=== PATIENT | female | born 1995 | race Caucasian/White ===

== ENCOUNTER 2016-10-11 21:46 | Emergency (ER) | payer OTHER ==
[~2016-10-11] VITALS: Ht 165.1 cm; Wt 65.8 kg
[2016-10-11] MEDS ORDERED: NORCO, ANEXSIA 5/325MG TABLET (HYDROcodone/ACETAMINOPHEN) PO ONE (22:30)
[2016-10-11 23:01] LABS: MEAN CORPUSCULAR HEMOGLOBIN 26.6 pg (27.0-33.0); MEAN CORPUSCULAR VOLUME 83.3 fl (80.0-96.0); WHITE BLOOD COUNT 7.5 K/mm3 (4.0-10.0)
[2016-10-11 23:36] LABS: ALBUMIN 3.6 GM/DL (3.2-5.2); ALKALINE PHOSPHATASE 54 U/L (45-117); ALT/SGPT 17 U/L (12-78); AMYLASE 46 U/L (25-115); ANION GAP 8 MEQ/L (8-16); AST/SGOT 15 U/L (15-37); BILIRUBIN,DIRECT 0.1 MG/DL (0.0-0.2); BILIRUBIN,TOTAL 0.5 MG/DL (0.2-1.0); BLOOD UREA NITROGEN 13 MG/DL (7-18); CALCIUM LEVEL 8.7 MG/DL (8.5-10.1); CARBON DIOXIDE LEVEL 27 MEQ/L (21-32); CHLORIDE LEVEL 104 MEQ/L (98-107); CREATININE FOR GFR 0.81 MG/DL (0.55-1.02); GLOMERULAR FILTRATION RATE > 60.0 (>60); GLUCOSE, FASTING 107 MG/DL (70-105); POTASSIUM SERUM 3.9 MEQ/L (3.5-5.1); SODIUM LEVEL 139 MEQ/L (136-145); TOTAL PROTEIN 7.2 GM/DL (6.4-8.2)
--- NOTE | 2016-10-11 23:40 | REPUSA ---
Clinical history: Right upper quadrant pain. Findings: The pancreas is limited in visualization secondary to overlying bowel gas, but appears mandi sly unremarkable. The liver demonstrates uniform echotexture and echogenicity. However, there is a hy perechoic lesion in the medial right lobe measuring 0.7 x 0.7 cm. The gallbladder is unremarkable. Th e common bile duct measures 2 mm and is within normal limits. The right kidney measures 10.2 cm in le ngth and is unremarkable. There is no ascites. Impression: No acute abnormality appreciated. Hyperechoic lesion in the medial right lobe of the live r likely represents a hepatic hemangioma.
[2016-10-11] MEDS ORDERED: NAPR500T PO (23:42)
[2016-10-11] MEDS ORDERED: CYCL10TA PO (23:42)
[2016-10-11 23:54] VITALS: BP 124/59
== END 2016-10-11 23:58 | disposition home or self-care (01) ==
LOC: M ED 22:37
DX: D18.09 Hemangioma of other sites (principal)

== ENCOUNTER 2017-01-24 15:36 | Emergency (ER) | payer OTHER ==
[~2017-01-24] VITALS: Ht 149.9 cm; Wt 65.9 kg
[~2017-01-24 15:36] MED LIST: CYCL10TA PO; NAPR500T PO
[2017-01-24 16:49] LABS: BASO % 0.7 % (0.0-1.0); EOS # 0.2 K/mm3 (0.0-0.50); EOS % 2.9 % (0.0-3.0); LARGE UNSTAINED CELL # 0.1 K/mm3 (0.0-0.4); LARGE UNSTAINED CELL % 1.7 % (0.0-4.0); LYMPH % 34.4 % (24.0-44.0); MEAN CORPUSCULAR HEMOGLOBIN 27.2 pg (27.0-33.0); MEAN CORPUSCULAR HGB CONC 33.7 g/dl (32.0-36.5); MEAN CORPUSCULAR VOLUME 80.7 fl (80.0-96.0); MONO # 0.3 K/mm3 (0.0-0.8); MONO % 5.3 % (0.0-5.0); NEUTROPHILS % 54.9 % (36.0-66.0); PLATELET COUNT, AUTOMATED 249 k/mm3 (150-450); RED CELL DISTRIBUTION WIDTH 12.7 % (11.5-14.5); WHITE BLOOD COUNT 5.5 K/mm3 (4.0-10.0)
[2017-01-24 17:08] LABS: CONTROL LINE HCG INT CTR LINE PRESENT
[2017-01-24 17:22] LABS: ANION GAP 11 MEQ/L (8-16); BLOOD UREA NITROGEN 11 MG/DL (7-18); CALCIUM LEVEL 8.4 MG/DL (8.5-10.1); CARBON DIOXIDE LEVEL 23 MEQ/L (21-32); CHLORIDE LEVEL 109 MEQ/L (98-107); CREATININE FOR GFR 0.77 MG/DL (0.55-1.02); GLOMERULAR FILTRATION RATE > 60.0 (>60); GLUCOSE, FASTING 99 MG/DL (70-105); POTASSIUM SERUM 4.1 MEQ/L (3.5-5.1); SODIUM LEVEL 143 MEQ/L (136-145)
[2017-01-24 17:47] VITALS: BP 137/84
[2017-01-25] MEDS ORDERED: TRINTAB3 PO (14:04)
[2017-01-25] MEDS ORDERED: HYDR-3363 PO (15:30)
== END 2017-01-24 17:52 | disposition home or self-care (01) ==
LOC: M ED 15:36
DX: F43.12 Post-traumatic stress disorder, chronic (principal); R56.9 Unspecified convulsions

== ENCOUNTER 2017-01-25 13:47 | Emergency (ER) | payer OTHER ==
[~2017-01-25] VITALS: Ht 162.6 cm; Wt 65.9 kg
[2017-01-25] MEDS ORDERED: TRINTAB3 PO (14:04)
[2017-01-25] MEDS ORDERED: HYDR-3363 PO (15:30)
[2017-01-25 16:10] VITALS: BP 112/78
== END 2017-01-25 16:25 | disposition home or self-care (01) ==
LOC: EDBD 13:47 → M ED 13:47
DX: F43.9 Reaction to severe stress, unspecified (principal)

== ENCOUNTER 2018-04-26 01:03 | Emergency (ER) | payer OTHER ==
[2018-04-26 03:30] LABS: BASO % 0.3 % (0.0-1.0); EOS % 0.1 % (0.0-3.0); HEMATOCRIT 39.5 % (36.0-47.0); HEMOGLOBIN 12.8 g/dl (12.0-15.5); IMMATURE GRANULOCYTE % 0.3 % (0-3.0); LYMPH # 1.6 10^3/uL (1.5-6.5); LYMPH % 15.6 % (24.0-44.0); MEAN CORPUSCULAR HGB CONC 32.4 g/dl (32.0-36.5); MEAN CORPUSCULAR VOLUME 83.3 fl (80.0-96.0); MONO # 0.4 10^3/uL (0.0-0.8); NEUTROPHILS % 79.7 % (36.0-66.0); PLATELET COUNT, AUTOMATED 323 10^3/uL (150-450); RED BLOOD COUNT 4.74 10^6/uL (4.00-5.40); RED CELL DISTRIBUTION WIDTH 12.5 % (11.5-14.5); WHITE BLOOD COUNT 10.1 10^3/uL (4.0-10.0)
[2018-04-26 03:49] LABS: CONTROL LINE HCG INT CTR LINE PRESENT; HCG, SERUM QUALITATIVE NEGATIVE (NEGATIVE)
[2018-04-26 03:58] LABS: ALBUMIN 4.3 GM/DL (3.2-5.2); ALBUMIN/GLOBULIN RATIO 1.26 (1.00-1.93); ALKALINE PHOSPHATASE 53 U/L (45-117); ALT/SGPT 15 U/L (12-78); ANION GAP 7 MEQ/L (8-16); AST/SGOT 13 U/L (7-37); BILIRUBIN,TOTAL 0.6 MG/DL (0.2-1.0); BLOOD UREA NITROGEN 11 MG/DL (7-18); CARBON DIOXIDE LEVEL 25 MEQ/L (21-32); CHLORIDE LEVEL 112 MEQ/L (98-107); CREATININE FOR GFR 0.86 MG/DL (0.55-1.30); GLOMERULAR FILTRATION RATE > 60.0 (>60); GLUCOSE, FASTING 99 MG/DL (70-100); POTASSIUM SERUM 4.3 MEQ/L (3.5-5.1); SODIUM LEVEL 144 MEQ/L (136-145); TOTAL PROTEIN 7.7 GM/DL (6.4-8.2)
[2018-04-26 04:15] LABS: HIVEXPOSED0 NEGATIVE (NEGATIVE)
[2018-04-26 04:16] LABS: CONTROL LINE INT CTR LINE PRESENT; HIV EXPOSED PT 1 NEGATIVE (NEGATIVE)
[2018-04-26] MEDS ORDERED: [UNRECOGNIZED DRUG - OTHER] IM (06:00)
[2018-04-26] MEDS: EXPOSURE KIT-ADULT 7 DAY SUPPLY PO (06:00)
[2018-04-26] MEDS ORDERED: LIDOCAINE 1% MDV 20ML VIAL As Ordered (06:01)
[2018-04-26] MEDS: cefTRIAXone SOD 250 MG VIAL (J0696) IM (06:06)
[2018-04-26] MEDS: AZITHROMYCIN 250 MG TAB PO (06:06)
[2018-04-26] MEDS: ACETAMINOPHEN 325 MG TAB PO (06:07)
[2018-04-26] MEDS: ONDANSETRON 4 MG TAB (S0181) PO (06:18)
[2018-04-26] MEDS: [UNRECOGNIZED DRUG - OTHER] IM (06:20)
[2018-04-26 08:40] LABS: CHLAMYDIA DNA AMPLIFICATION NEGATIVE (NEGATIVE); GC DNA AMPLIFICATION NEGATIVE (NEGATIVE)
[2018-04-28 10:46] LABS: HEPATITIS B SURFACE ANTIBODY POSITIVE (POSITIVE)
[2018-04-28 10:56] LABS: HEPATITIS B SURFACE ANTIGEN NEGATIVE (NEGATIVE)
[2018-04-28 11:25] LABS: HEPATITIS C VIRUS ABY INDEX < 0.0 INDEX (<0.8)
== END 2018-04-26 06:54 | disposition home or self-care (01) ==
LOC: M ED 01:03
DX: T76.21XA Adult sexual abuse, suspected, initial encounter (principal); X58.XXXA Exposure to other specified factors, initial encounter
CPT/HCPCS: 90471